=== PATIENT | female | born 1995 | race African-American/Black ===

== ENCOUNTER 2020-10-07 08:50 | Emergency (ER) | payer BC, OTHER ==
[2020-10-07 08:59] VITALS: PULSE 84; TEMP 98.6; BMI 36.5
[2020-10-07 09:05] VITALS: BP 115/61
[2020-10-07 10:00] LABS: BASO % 1.1 % (0-2.0); EOS % 4.1 % (0-4.5); HEMATOCRIT 40.2 % (32.4-45.2); HEMOGLOBIN 13.4 GM/dL (10.7-15.3); LYMPH % 37.2 % (8-40); MCH 28.3 pg (25.7-33.7); MCHC 33.2 g/dl (32.0-36.0); MEAN CELL VOLUME 85.1 fl (80-96); MEAN PLT VOLUME 10.5 fl (7.5-11.1); MONO % 6.2 % (3.8-10.2); NEUT % 51.4 % (42.8-82.8); PLATELET COUNT 203 K/MM3 (134-434); RBC 4.72 M/mm3 (3.60-5.2); RDW 13.6 % (11.6-15.6); WHITE BLOOD COUNT 8.3 K/mm3 (4.0-10.0)
[2020-10-07 10:25] LABS: CHLORIDE 107 mmol/L (98-107); POTASSIUM 4.2 mmol/L (3.5-5.1); SODIUM 139 mmol/L (136-145)
[2020-10-07 10:27] LABS: CALCIUM 8.9 mg/dL (8.5-10.1)
[2020-10-07 10:28] LABS: ALBUMIN 3.4 g/dl (3.4-5.0); ANION GAP 6 MMOL/L (8-16); BLOOD UREA NITROGEN 12.9 mg/dL (7-18); CO2 26 mmol/L (21-32); GLUCOSE,RANDOM 80 mg/dL (74-106)
[2020-10-07 10:31] LABS: CREATININE 0.7 mg/dL (0.55-1.3); SGOT/AST 12 U/L (15-37); SGPT/ALT 18 U/L (13-61)
[2020-10-07 10:32] LABS: BILIRUBIN,TOTAL 0.2 mg/dL (0.2-1)
[2020-10-07 10:34] LABS: ALK PHOS 105 U/L (45-117)
== END 2020-10-07 11:10 | disposition home or self-care (01) ==
LOC: JER 08:50
DX: N91.2 Amenorrhea, unspecified (principal)
CPT/HCPCS: 36415; 80053; 84702; 85025; 99283-25

== ENCOUNTER 2020-12-10 11:24 | Emergency (ER) | payer BC, OTHER ==
[2020-12-10 11:35] VITALS: BP 136/76; PULSE 96; BMI 37.5
[2020-12-10] MEDS ORDERED: ACETAMINOPHEN 325 MG TABLET (FP) PO ONE (12:08)
== END 2020-12-10 12:14 | disposition home or self-care (01) ==
LOC: JERFT 11:24
DX: H72.91 Unspecified perforation of tympanic membrane, right ear (principal)
CPT/HCPCS: 99283-25

== ENCOUNTER 2021-03-14 16:44 | Emergency (ER) | payer OTHER ==
[2021-03-14 16:51] VITALS: BP 120/58; PULSE 74; TEMP 98; BMI 36.9
[2021-03-14] MEDS ORDERED: AZITHROMYCIN 250 MG TABLET PO ONE (17:16)
[2021-03-14] MEDS ORDERED: AZITHROMYCIN 250 MG TABLET ONE (17:50)
[2021-03-14] MEDS ORDERED: cefTRIAXone SODIUM 1 GM VIAL ONE (17:54)
[2021-03-14] MEDS ORDERED: LIDOCAINE HCL 2% (20ML MULTI-DOSE VIAL) ONE (17:56)
[2021-03-14 18:36] LABS: EPI CELLS 16 /uL (0-25.1); HCG,QUALITATIVE URINE Negative; HYALINE CASTS 1 /uL (0-3.1); URINE APPEARANCE CLEAR; URINE BACTERIA 247 /uL (0-1359); URINE BILIRUBIN NEGATIVE (NEGATIVE); URINE COLOR YELLOW; URINE GLUCOSE (UA) NEGATIVE (NEGATIVE); URINE KETONE NEGATIVE (NEGATIVE); URINE LEUK ESTERASE NEGATIVE (NEGATIVE); URINE NITRITE NEGATIVE (NEGATIVE); URINE PROTEIN NEGATIVE (NEGATIVE); URINE RBC 20 /uL (0-23.9); URINE UROBILINOGEN 0.2 mg/dL (0.2-1.0); URINE WBC 12 /uL (0-25.8)
[2021-03-14 18:57] LABS: HIV INTERPRETATION NEGATIVE (NEGATIVE)
== END 2021-03-14 18:36 | disposition home or self-care (01) ==
LOC: JERFT 16:44
DX: N89.8 Other specified noninflammatory disorders of vagina (principal); Z11.3 Encounter for screening for infections with a predominantly sexual mode of transmission
CPT/HCPCS: 36415; 81003; 84703; 86780; 87070; 87077; 87086; 87205; 87389; 87491; 87591; 87661; 99284-25

== ENCOUNTER 2022-04-03 12:30 | Emergency (ER) | payer OTHER ==
[2022-04-03 12:35] VITALS: BP 115/70; PULSE 103; TEMP 97; BMI 39.9
[2022-04-03 14:50] LABS: HCG,QUALITATIVE URINE Positive
[2022-04-03] MEDS ORDERED: ACETAMINOPHEN 500 MG TABLET (FP) PO ONE (14:57)
[2022-04-03] MEDS ORDERED: ACETAMINOPHEN 500 MG TABLET (FP) ONE (15:00)
[2022-04-03 15:16] LABS: EPI CELLS >36 /uL (0-25.1); HYALINE CASTS 2 /uL (0-3.1); PH,URINE 5.5 (5.0-8.0); URINE APPEARANCE CLEAR; URINE BACTERIA 829 /uL (0-1359); URINE BILIRUBIN NEGATIVE (NEGATIVE); URINE COLOR YELLOW; URINE GLUCOSE (UA) NEGATIVE (NEGATIVE); URINE KETONE NEGATIVE (NEGATIVE); URINE LEUK ESTERASE TRACE (NEGATIVE); URINE NITRITE NEGATIVE (NEGATIVE); URINE PROTEIN TRACE (NEGATIVE); URINE UROBILINOGEN 0.2 mg/dL (0.2-1.0); URINE WBC 57 /uL (0-25.8)
[2022-04-03 15:17] LABS: URINE RBC 25.6 /uL (0-23.9)
== END 2022-04-03 15:52 | disposition home or self-care (01) ==
LOC: JER 12:30 → JERFT 12:30
DX: O23.599 Infection of other part of genital tract in pregnancy, unspecified trimester (principal); O26.899 Other specified pregnancy related conditions, unspecified trimester; M54.50 Low back pain, unspecified; Z3A.00 Weeks of gestation of pregnancy not specified
CPT/HCPCS: 81003; 84703; 99283-25

== ENCOUNTER 2022-04-12 13:46 | Emergency (ER) | payer OTHER ==
[2022-04-12 13:54] VITALS: BP 122/78; PULSE 80; TEMP 98.4; BMI 39.9
== END 2022-04-12 15:21 | disposition home or self-care (01) ==
LOC: JERFT 13:46
DX: M54.50 Low back pain, unspecified (principal)
CPT/HCPCS: 99283-25